=== PATIENT | male | born 1990 | race Two or more races ===

== ENCOUNTER 2019-01-01 20:02 | Emergency (ER) | payer SELFPAY ==
[~2019-01-01] VITALS: Ht 177.8 cm; Wt 95.5 kg
[2019-01-01] MEDS ORDERED: ONDANSETRON HCL 4 MG/2 ML VIAL IVP ONE (21:15)
[2019-01-01] MEDS ORDERED: MORPHINE SULFATE 4 MG/ML SYRINGE IVP ONE (21:15)
[2019-01-01 21:30] LABS: APPEARANCE,URINE CLEAR (CLEAR); GLUCOSE, URINE (UA) NEGATIVE (NEGATIVE); KETONES,URINE TRACE mg/dL (NEGATIVE); LEUKOCYTE ESTERASE ,URINE NEGATIVE (NEGATIVE); NITRATE,URINE NEGATIVE (NEGATIVE); OCCULT BLOOD,URINE NEGATIVE (NEGATIVE); PH,URINE 5.5 (5.0-8.0); PROTEIN,URINE TRACE (NEGATIVE)
[2019-01-01 21:31] LABS: BILIRUBIN,URINE PRELIM. POSITIVE (NEGATIVE)
[2019-01-01 21:38] LABS: BASOPHILS % (AUTO) 0.5 % (0.0-2.0); EOSINOPHILS % (AUTO) 1.1 % (1.0-6.0); HEMATOCRIT 40.5 % (41-53); HEMOGLOBIN 13.2 g/dL (13.5-17.5); LYMPHOCYTES # (AUTO) 2.6 K/uL (1.0-4.8); LYMPHOCYTES % (AUTO) 37.4 % (22.0-44.0); MEAN CORPUSCULAR HEMOGLOBIN 30.1 pg (26.0-34.0); MEAN CORPUSCULAR HGB CONC 32.7 G/dL (31.0-37.0); MEAN CORPUSCULAR VOLUME 92 fL (80-100); MONOCYTES # (AUTO) 0.5 K/uL (0.1-1.0); MONOCYTES % (AUTO) 6.7 % (2.0-9.0); NEUTROPHILS # (AUTO) 3.8 K/uL (1.8-7.7); NEUTROPHILS % (AUTO) 54.3 % (40.0-70.0); PLATELET COUNT (AUTO) 230 K/uL (150-450); RED BLOOD CELL COUNT(AUTO) 4.39 MIL/uL (4.50-5.90); RED CELL DISTRIBUTION WIDTH 13.3 % (11.5-14.5)
[2019-01-01 21:40] LABS: RBC,URINE 0-2 /HPF (0-2); WBC,URINE 0-2 /HPF (0-5)
[2019-01-01 21:41] LABS: BACTERIA,URINE None Seen /HPF (None Seen); MUCUS,URINE Few LPF (None Seen); SQUAMOUS EPITHELIAL CELL,UR Rare /LPF (None Seen)
[2019-01-01 21:57] VITALS: BP_DIAS 80
[2019-01-01 22:02] LABS: ANION GAP 7 mmol/L (8-16); CALCIUM, TOTAL 9.2 mg/dL (8.8-10.5); CARBON DIOXIDE 27 mmol/L (22-29); CHLORIDE 108 mmol/L (98-107); CREATININE 0.99 mg/dL (0.60-1.30); GLOMERULAR FILTR. RATE CALC > 60 mL/min (>60); GLUCOSE,RANDOM 99 mg/dL (70-110); POTASSIUM 3.7 mmol/L (3.5-5.1); SODIUM SERUM 142 mmol/L (136-145); UREA NITROGEN, BLOOD 21 mg/dL (7-18)
[2019-01-01 22:04] LABS: ALANINE AMINOTRANSFERASE 18 U/L (12-78); ALBUMIN 3.6 g/dL (3.4-5.0); ALKALINE PHOSPHATASE 78 U/L (46-116); ASPARTATE AMINOTRANSFERASE 12 U/L (15-37); BILIRUBIN,TOTAL 0.2 mg/dL (0.1-1.0); TOTAL PROTEIN, SERUM 6.7 g/dL (6.4-8.2)
[2019-01-01 22:40] VITALS: BP_SYST 51
== END 2019-01-02 00:44 | disposition home or self-care (01) ==
LOC: EMS 20:05
DX: K40.90 Unilateral inguinal hernia, without obstruction or gangrene, not specified as recurrent (principal); F17.210 Nicotine dependence, cigarettes, uncomplicated
CPT/HCPCS: 36415; 76870; 80053; 81001; 85025; 96374; 96375; 99284; J2270; J2405